=== PATIENT | male | born 1945 | race Caucasian/White ===

== ENCOUNTER 2016-09-29 03:08 | Inpatient (IN) | payer OTHER, MEDICARE ==
[2016-09-29] VITALS (7 sets, daily range): BP systolic 121–144; BP diastolic 70–78; PULSE 78–86; RESP 16–18; TEMP 97.5–98.6; O2SAT 92–97
[~2016-09-29] VITALS: Ht 175.3 cm; Wt 60.8 kg
--- NOTE | 2016-09-29 01:45 | NUR ---
RESUMED CARE Received report from Brain, RN and resumed care to patient. Patient resting on bed with eyes closed. No acute distress. Skin warm and dry to touch. IV intact to RFA, no redness, no swelling, no drainage. On NS at 75ml/hr, infusing well. On droplet isolation R/O TB. Safety measure maintained. Call light within reached. Bed in low position, side rails up. Will continue to monitor. Addendum: 09/30/16 at 0551 by Musa Lopez RN WRONG DATE SHOULD BE 09/30/16
--- NOTE | 2016-09-29 03:20 | NUR ---
Patient O2 sat 90%RA. Placed on 2L O2 via nasal cannula. Oxygen sat increased to 99%
--- NOTE | 2016-09-29 03:20 | NUR ---
Placed in room 07 . Placed on teletypesetter monitor, blood pressure machine and pulse oximeter. To gown for exam. Side rails up. Report given to MAXIME Burch.
--- NOTE | 2016-09-29 03:20 | NUR ---
Patient AAO x4, sitting in bed, c/o sore throat 4/10 with cough and shortness of breath on exertion x 1 week with wheezes. Patient states in the last two weeks he has lost weight, has traveled to [place], and has had night sweats in the last two weeks. Patient denies chest pain, patient is not actively coughing, no acute distress noted at this time. Will continue to monitor.
--- NOTE | 2016-09-29 03:20 | NUR ---
ER at bedside examining patient.
--- NOTE | 2016-09-29 03:30 | NUR ---
Patient moved to Room 08 and placed on droplet precautions.
[2016-09-29] MEDS ORDERED: cefTRIAXone 1 GM in D5W 50 ML IV ONE (03:45)
[2016-09-29] MEDS ORDERED: NS 500 ML IV ONE (03:45)
[2016-09-29 04:07] LABS: ANION GAP 3 (5-15); CALCIUM 8.2 mg/dL (8.4-11.0); CHLORIDE 105 mmol/L (98-107); CREATININE 1.88 mg/dL (0.55-1.30); GLUCOSE 133 mg/dL (70-99); POTASSIUM 3.8 mmol/L (3.5-5.1); SODIUM SERUM 134 mmol/L (136-145); UREA NITROGEN, BLOOD 20 mg/dL (8-21)
[2016-09-29 04:09] LABS: BASOPHILS # (AUTO) 0.1 K/uL (0.0-0.2); BASOPHILS % (AUTO) 0.3 % (0.0-2.0); EOSINOPHILS # (AUTO) 2.1 K/uL (0.0-0.4); EOSINOPHILS % (AUTO) 9.5 % (0.0-4.0); HEMATOCRIT 33.6 % (36-54); HEMOGLOBIN 11.3 g/dL (14.0-18.0); LYMPHOCYTES # (AUTO) 2.2 K/uL (1.0-5.5); MEAN CORPUSCULAR HEMOGLOBIN 31 pg (27-31); MEAN CORPUSCULAR HGB CONC 34 % (32-36); MEAN CORPUSCULAR VOLUME 92 fL (79.0-98.0); MONOCYTES # (AUTO) 0.9 K/uL (0.0-1.0); MONOCYTES % (AUTO) 3.8 % (1.7-9.3); NEUTROPHILS # (AUTO) 17.1 K/uL (1.8-7.7); NEUTROPHILS % (AUTO) 76.4 % (40.0-70.0); RED BLOOD CELL COUNT(AUTO) 3.66 MIL/uL (4.2-6.2); RED CELL DISTRIBUTION WIDTH 14.2 % (9.0-15.0); WHITE BLOOD COUNT (AUTO) 22.4 K/uL (4.8-10.8)
[2016-09-29 04:10] LABS: INR 1.1 (0.80-1.20); PROTHROMBIN TIME 11.8 SECS (9.5-12.5)
[2016-09-29 04:11] LABS: ALANINE AMINOTRANSFERASE 106 U/L (12-78); ALBUMIN 2.1 g/dL (3.4-4.8); ASPARTATE AMINOTRANSFERASE 60 U/L (10-37); CREATINE KINASE, TOTAL 29 U/L (39-308); TOTAL BILIRUBIN 0.6 mg/dL (0.0-1.0); TOTAL PROTEIN, SERUM 8.4 g/dL (6.4-8.3)
[2016-09-29 04:28] LABS: PLATELET COUNT (AUTO) 807 K/uL (130-430)
[2016-09-29] MEDS ORDERED: cefTRIAXone 1 GM IVPB PREMIX 50 ML IV ONE (04:32)
--- NOTE | 2016-09-29 04:43 | NUR ---
Collected sputum and sent to lab.
--- NOTE | 2016-09-29 04:45 | NUR ---
Patient to CT via [place] with [employer].
--- NOTE | 2016-09-29 05:45 | NUR ---
Patient resting in bed. No acute distress noted. Will continue to monitor.
[2016-09-29 06:22] LABS: BILIRUBIN,URINE NEGATIVE (NEGATIVE); BLOOD, URINE 1+ (NEGATIVE); CLARITY/URINE CLEAR (CLEAR); COLOR,URINE YELLOW (YELLOW); GLUCOSE,URINE NEGATIVE (NEGATIVE); KETONES,URINE NEGATIVE (NEGATIVE); LEUKOCYTE ESTERASE ,URINE NEGATIVE (NEGATIVE); NITRITE, URINE NEGATIVE (NEGATIVE); PROTEIN URINE NEGATIVE (NEGATIVE); UROBILINOGEN,URINE 0.2 (0.2-1.0)
[2016-09-29] MEDS ORDERED: ONDANSETRON HCL 4 MG/2 ML VIAL IVP PRN (06:30)
[2016-09-29] MEDS ORDERED: ALBUTEROL SULFATE 0.083% 2.5 MG/3 ML VIAL.NEB INH PRN (06:30)
[2016-09-29] MEDS ORDERED: HYDROcodone/ACETAMIN 10-325 MG TAB PO PRN (06:30)
[2016-09-29] MEDS: NACL 0.9% 1,000 ML IV SCH ×2 (06:36→15:50)
--- NOTE | 2016-09-29 06:38 | NUR ---
Called [facility] for bed placement, informed by charge nurse patient rooms is not ready and she will be calling the ED back for bed placement, until that time patient will remain in the ED.
[2016-09-29 06:42] LABS: BACTERIA,URINE FEW /HPF (None Seen)
[2016-09-29 06:43] LABS: MUCUS,URINE None Seen /LPF (None Seen)
--- NOTE | 2016-09-29 07:10 | NUR ---
Called [facility], bed for patient still unavailable.
--- NOTE | 2016-09-29 07:10 | NUR ---
Report given over the phone to [facility]hand frame surgical elastic knitter. Report also given to dayshift nurse MAXIME Fry.
--- NOTE | 2016-09-29 08:02 | NUR ---
Patient will be admitted to care of . Admitted to unit. Will go to room . Belongings list completed. Summary report printed. Report given BY fast food shift supervisor nurse jonathon
--- NOTE | 2016-09-29 08:12 | NUR ---
ADMISSION: The patient, CHENG ARMENTA, 71 y/o, M admitted by EDUARDO KAM MD, was given written information regarding hospital policies, unit procedures and contact persons.
--- NOTE | 2016-09-29 08:38 | NUR ---
ID consult Order received for a consult with Dr Conn to r/o TB. Dr Peñaloza is phonograph needle tip maker for [facility]. Spoke with Emelia at the exchange. Will follow up as needed.
[2016-09-29] MEDS ORDERED: AZITHROMYCIN 500 MG in NS 250 ML IV SCH ×2 (09:00→17:00)
[2016-09-29] MEDS ORDERED: PANTOPRAZOLE SODIUM 40 MG TAB PO SCH (09:00)
[2016-09-29] MEDS ORDERED: methylPREDNISolone SOD SUCC 40 MG/ML VIAL IVP SCH (09:00)
[2016-09-29] MEDS: LACTOBACILLUS RHAMNOSUS GG 1 CAP CAPSULE PO SCH ×2 (09:44→20:51)
[2016-09-29] MEDS: DIPHENHYDRAMINE HCL 25 MG CAPSULE PO SCH ×4 (09:44→20:51)
[2016-09-29] MEDS: ENOXAPARIN SODIUM 30 MG/0.3 ML SYRINGE SUBCUT SCH (09:45)
[2016-09-29] MEDS ORDERED: methylPREDNISolone SOD SUCC/PF 62.5 MG/ML VIAL IVP ONE (10:15)
[2016-09-29] MEDS ORDERED: LEVOFLOXACIN 500 MG/D5W 100 ML IV ONE (10:15)
--- NOTE | 2016-09-29 10:32 | NUR ---
Pulmonary consult Order received for a consult with Dr Cantu. Dr Marroquin has spoken to Dr Cantu re: pt. Will follow up as needed.
[2016-09-29] MEDS ORDERED: PIPERACILLIN/TAZO 2.25G/DEX-IS 50 ML IV SCH (12:00)
--- NOTE | 2016-09-29 12:25 | NUR ---
PATIENT IS EATING LUNCH, TOLERATED WELL, NO SIGNS OF DISTRESS NOTED.
--- NOTE | 2016-09-29 14:45 | NUR ---
PATIENT IS RESTING, FAMILY AT BEDSIDE.
[2016-09-29] MEDS: methylPREDNISolone SOD SUCC/PF 62.5 MG/ML VIAL IVP SCH ×2 (14:57→21:30)
[2016-09-29] MEDS: FLUCONAZOLE 200 mg/ NS 100 ML IV SCH (15:01)
--- NOTE | 2016-09-29 17:00 | NUR ---
PATIENT IS AT BEDSIDE, NO SIGNS OF DISTRESS NOTED.
[2016-09-29] MEDS: AZITHROMYCIN 500 MG in NS 250 ML IV SCH (18:54)
--- NOTE | 2016-09-29 20:00 | NUR ---
CALLED ORDERED AMBIEN 5MG PO QHS FOR INSOMNIA.
--- NOTE | 2016-09-29 20:10 | NUR ---
OPENING ASSESSMENT PATIENT ALERT/ORIENTED X4 SPEECH IS CLEAR AND APPROPRIATE. DENIES PAIN. DROPLETS ISOLATION. LUNGS ARE CLEAR. NO SOB NOTED. O2 SAT. 96% ON R/A. HAS IV 0.9NS INFUSING @ 75 ML/HR LT. HAND 20 G. IV SITE IS CLEAR. VOIDING CLEAR YELLOW IN URINAL. TOLERATING DIET WITHOUT NAUSEA. CALL LIGHT WITHIN EASY ACCESS. INFORMED PATIENT TO CALL NURSE FOR ALL NEEDS.
[2016-09-29] MEDS: CEFEPIME 1 GM in D5W 50 ML IV SCH (20:50)
[2016-09-29] MEDS: FAMOTIDINE PF 20 MG/2 ML VIAL IVP SCH (20:51)
[2016-09-29] MEDS: ZOLPIDEM TARTRATE 5 MG TABLET PO SCH (21:30)
--- NOTE | 2016-09-29 22:10 | NUR ---
ROUNDS PATIENT RESTING QUIETLY. NO RESPIRATORY DISTRESS NOTED @ THIS TIME.
--- NOTE | 2016-09-30 | NUR ---
ROUNDS EASILY AWAKEN FOR VITALS. RESTING QUIETLY. DENIES PAIN OR RESPIRATORY PROBLEMS.
[2016-09-30 00:13] VITALS: BP 124/75; PULSE 71; RESP 18; TEMP 99.2; O2SAT 98
--- NOTE | 2016-09-30 01:44 | NUR ---
NOTES REPORT GIVEN TO ADRIANA SWARTZ. PATIENT STABLE @ THIS TIME. NO DISTRESS NOTED.
--- NOTE | 2016-09-30 01:45 | NUR ---
RESUMED CARE Received report from Brain, RN and resumed care to patient. Patient resting on bed with eyes closed. No acute distress. Skin warm and dry to touch. IV intact to RFA, no redness, no swelling, no drainage. On NS at 75ml/hr, infusing well. On droplet isolation R/O TB. Safety measure maintained. Call light within reached. Bed in low position, side rails up. Will continue to monitor.
--- NOTE | 2016-09-30 03:05 | NUR ---
ROUND Patient resting on the bed comfortable. No acute distress. Respiration even and unlabored. Safety measure maintained. Call light within reached. Bed in low position, side rails up. Continue to monitor.
[2016-09-30] MEDS: NACL 0.9% 1,000 ML IV SCH (03:48)
[2016-09-30 04:26] VITALS: BP 131/78; PULSE 79; RESP 18; TEMP 97.5; O2SAT 99
--- NOTE | 2016-09-30 04:55 | NUR ---
ROUND Patient resting on the bed comfortable. No acute distress. Respiration even and unlabored. Safety measure maintained. Bed in low position, side rails up. Call light within reached. Continue to monitor.
--- NOTE | 2016-09-30 06:50 | NUR ---
CLOSING CARE Patient resting on bed comfortable. No acute distress. Skin warm and dry to touch. IV intact to RFA, no redness, no swelling, no drainage. On NS at 75ml/hr, infusing well. On droplet isolation R/O TB. All needs met. Hourly rounding during shift. Safety measure maintained. Call light within reached. Bed in low position, side rails up. Will endorse to morning shift nurse.
[2016-09-30] MEDS: LEVOTHYROXINE SODIUM 0.05 MG TABLET PO SCH (06:57)
[2016-09-30] MEDS: methylPREDNISolone SOD SUCC/PF 62.5 MG/ML VIAL IVP SCH (06:58)
[2016-09-30 07:10] LABS: EOSINOPHILS % (AUTO) 0.1 % (0.0-4.0); HEMATOCRIT 27.9 % (36-54); HEMOGLOBIN 9.4 g/dL (14.0-18.0); LYMPHOCYTES # (AUTO) 1.8 K/uL (1.0-5.5); LYMPHOCYTES % (AUTO) 10.1 % (20.5-51.5); MEAN CORPUSCULAR HEMOGLOBIN 32 pg (27-31); MEAN CORPUSCULAR HGB CONC 34 % (32-36); MEAN CORPUSCULAR VOLUME 94 fL (79.0-98.0); MONOCYTES # (AUTO) 0.2 K/uL (0.0-1.0); MONOCYTES % (AUTO) 1.1 % (1.7-9.3); NEUTROPHILS # (AUTO) 15.5 K/uL (1.8-7.7); NEUTROPHILS % (AUTO) 88.7 % (40.0-70.0); PLATELET COUNT (AUTO) 696 K/uL (130-430); RED BLOOD CELL COUNT(AUTO) 2.98 MIL/uL (4.2-6.2); RED CELL DISTRIBUTION WIDTH 14.3 % (9.0-15.0); WHITE BLOOD COUNT (AUTO) 17.5 K/uL (4.8-10.8)
[2016-09-30 07:33] LABS: ALANINE AMINOTRANSFERASE 81 U/L (12-78); ALBUMIN 1.6 g/dL (3.4-4.8); ANION GAP 7 (5-15); ASPARTATE AMINOTRANSFERASE 38 U/L (10-37); CALCIUM 7.6 mg/dL (8.4-11.0); CHLORIDE 106 mmol/L (98-107); CREATININE 1.63 mg/dL (0.55-1.30); GLUCOSE 177 mg/dL (70-99); PHOSPHORUS 3.6 mg/dL (2.7-4.5); POTASSIUM 4.1 mmol/L (3.5-5.1); SODIUM SERUM 137 mmol/L (136-145); TOTAL BILIRUBIN 0.3 mg/dL (0.0-1.0); TOTAL PROTEIN, SERUM 7.2 g/dL (6.4-8.3); UREA NITROGEN, BLOOD 27 mg/dL (8-21)
--- NOTE | 2016-09-30 07:35 | NUR ---
rn notes: patient is aaox 4. afebrile. vss stable. lungs bilaterally with crackles on the bases. no oxygen on room air. abdomen soft and non distended. bed in low position. uses urinal for voiding. call lights within reach. safety measures maintained. has iv access on the rt forearm #20 with Normal Saline 75cc/hr infusing on well. informed patient to call for assistance. still on droplet/tb isolation.
[2016-09-30] MEDS: ENOXAPARIN SODIUM 30 MG/0.3 ML SYRINGE SUBCUT SCH (08:56)
[2016-09-30] MEDS: DIPHENHYDRAMINE HCL 25 MG CAPSULE PO SCH ×3 (08:56→21:14)
[2016-09-30] MEDS: LACTOBACILLUS RHAMNOSUS GG 1 CAP CAPSULE PO SCH ×2 (08:56→21:15)
[2016-09-30] MEDS ORDERED: LEVOFLOXACIN 500 MG/D5W 100 ML IV SCH (09:00)
[2016-09-30] MEDS: FAMOTIDINE PF 20 MG/2 ML VIAL IVP SCH ×2 (09:28→21:14)
[2016-09-30] MEDS: FLUCONAZOLE 200 mg/ NS 100 ML IV SCH (09:28)
[2016-09-30] MEDS: CEFEPIME 1 GM in D5W 50 ML IV SCH ×2 (09:28→21:14)
--- NOTE | 2016-09-30 09:34 | NUR ---
due iv antibiotics given. pepcid iv too. assists on adls.
--- NOTE | 2016-09-30 10:00 | NUR ---
assists on adls.
[2016-09-30 12:00] VITALS: BP 144/80; PULSE 84; RESP 20; TEMP 98.2; O2SAT 96
--- NOTE | 2016-09-30 12:00 | NUR ---
eating lunch tolerating well. no pain nor distress noted.
--- NOTE | 2016-09-30 14:00 | NUR ---
asleep at this time. stable
[2016-09-30] MEDS: methylPREDNISolone SOD SUCC 40 MG/ML VIAL IVP SCH ×2 (15:53→21:14)
[2016-09-30 16:00] VITALS: BP 127/72; PULSE 74; RESP 21; TEMP 98.1; O2SAT 99
--- NOTE | 2016-09-30 16:00 | NUR ---
due medication given as ordered.
--- NOTE | 2016-09-30 18:52 | NUR ---
patient is quite. still eating dinner. no pain nor distress noted.
[2016-09-30] MEDS: AZITHROMYCIN 500 MG in NS 250 ML IV SCH (19:09)
--- NOTE | 2016-09-30 19:25 | NUR ---
sbar report given to incoming nurse. Phillip SWARTZ
--- NOTE | 2016-09-30 19:58 | NUR ---
OPENING ASSESSMENT PATIENT ALERT/ORIENTED X4. SPEECH IS CLEAR AND APPROPRIATE. DENIES PAIN. ISOLATION PRECAUTION FOR DROPLETS TB. O2 SAT. 96%.R/A. HAS BILATERAL CRACKLES IN LUNG CACERES. RFA 20 IV 0.9NS INFUSING @ 75ML/HR. SITE IS CLEAR. VOIDING CLEAR YELLOW IN URINAL. INFORMED PATIENT TO CALL NURSE FOR ALL NEEDS. NOT TO GET OUT OF BED WITHOUT ASSIST. CALL LIGHT WITHIN EASY ACCESS.
[2016-09-30 20:20] VITALS: BP 121/71; PULSE 70; RESP 20; TEMP 98.2; O2SAT 96
[2016-09-30] MEDS: ZOLPIDEM TARTRATE 5 MG TABLET PO SCH (21:14)
--- NOTE | 2016-09-30 22:05 | NUR ---
NOTES PATIENT STATED MILD SOB WHEN AMBULATING TO BATHROOM. EDUCATED PATIENT TO CALL NURSE FOR ALL NEEDS AND WHEN GETTING OUT OF BED.
--- NOTE | 2016-10-01 00:05 | NUR ---
ROUNDS PATIENT IS ASLEEP. NO DISTRESS NOTED @ THIS TIME. NO SOB NOTED.
[2016-10-01 00:30] VITALS: BP 101/58; PULSE 59; RESP 18; TEMP 97.4; O2SAT 94
--- NOTE | 2016-10-01 00:53 | NUR ---
NOTES REPORT TO BRANDEE SWARTZ. PATIENT WITH NO DISTRESS @ THIS TIME. VITALS STABLE. NO SOB NOTED.
--- NOTE | 2016-10-01 01:05 | NUR ---
ROUNDS PATIENT ASLEEP, NO SOB NOR PAIN AND DISCOMFORT NOTED AT THIS TIME. WILL CONTINUE TO MONITOR.
--- NOTE | 2016-10-01 04:00 | NUR ---
PATIENT RESTING: Patient resting quietly. No acute distress noted. Vital signs within normal range.
[2016-10-01 04:24] VITALS: BP 122/63; PULSE 67; RESP 20; TEMP 97.4; O2SAT 97
[2016-10-01] MEDS: LEVOTHYROXINE SODIUM 0.05 MG TABLET PO SCH (06:09)
[2016-10-01] MEDS: methylPREDNISolone SOD SUCC 40 MG/ML VIAL IVP SCH ×2 (06:14→17:28)
--- NOTE | 2016-10-01 06:53 | NUR ---
CLOSING NOTES PATIENT AWAKE, VITALS STABLE, DENIES ANY PAIN AND DISCOMFORT NOR COUGH AT THIS TIME. ALL NEEDS ATTENDED TO. DUE MEDICATIONS GIVEN ORDERED. SAFETY AND FALL PRECAUTION MEASURES MAINTAINED. CALL LIGHT PLACED WITH PATIENT.
[2016-10-01 07:03] LABS: BASOPHILS # (AUTO) 0.1 K/uL (0.0-0.2); BASOPHILS % (AUTO) 0.3 % (0.0-2.0); HEMATOCRIT 27.4 % (36-54); HEMOGLOBIN 9.3 g/dL (14.0-18.0); LYMPHOCYTES # (AUTO) 1.8 K/uL (1.0-5.5); LYMPHOCYTES % (AUTO) 7.8 % (20.5-51.5); MEAN CORPUSCULAR HEMOGLOBIN 32 pg (27-31); MEAN CORPUSCULAR HGB CONC 34 % (32-36); MEAN CORPUSCULAR VOLUME 94 fL (79.0-98.0); MONOCYTES # (AUTO) 0.8 K/uL (0.0-1.0); MONOCYTES % (AUTO) 3.5 % (1.7-9.3); NEUTROPHILS # (AUTO) 20.6 K/uL (1.8-7.7); NEUTROPHILS % (AUTO) 88.4 % (40.0-70.0); PLATELET COUNT (AUTO) 686 K/uL (130-430); RED BLOOD CELL COUNT(AUTO) 2.93 MIL/uL (4.2-6.2); RED CELL DISTRIBUTION WIDTH 14.4 % (9.0-15.0); WHITE BLOOD COUNT (AUTO) 23.3 K/uL (4.8-10.8)
[2016-10-01 07:12] LABS: ANION GAP 8 (5-15); CALCIUM 7.6 mg/dL (8.4-11.0); CHLORIDE 108 mmol/L (98-107); GLUCOSE 173 mg/dL (70-99); POTASSIUM 4.1 mmol/L (3.5-5.1); SODIUM SERUM 139 mmol/L (136-145); UREA NITROGEN, BLOOD 35 mg/dL (8-21)
--- NOTE | 2016-10-01 07:35 | NUR ---
rn notes: patient is aaox 4. afebrile. vss stable. has iv access on the left forearm #22. with normal saline at 75cc/hr infusing on well. lungs bilaterally with slight crackles noted. patient verbalized wants to have oxygen on. dyspneic at times. Dr Cantu is aware. oxygen saturation on 2lnc is 94%. abdomen soft and non distended. call lights within reach. safety measures maintained. bed in low position. still on droplet isolation
[2016-10-01 08:00] VITALS: BP 138/82; PULSE 82; RESP 18; TEMP 97.6; O2SAT 98
--- NOTE | 2016-10-01 09:00 | NUR ---
assists on adls.
[2016-10-01] MEDS: LACTOBACILLUS RHAMNOSUS GG 1 CAP CAPSULE PO SCH ×2 (09:26→22:25)
[2016-10-01] MEDS: DIPHENHYDRAMINE HCL 25 MG CAPSULE PO SCH ×3 (09:26→22:25)
[2016-10-01] MEDS: FLUCONAZOLE 200 mg/ NS 100 ML IV SCH (09:26)
[2016-10-01] MEDS: FAMOTIDINE PF 20 MG/2 ML VIAL IVP SCH ×2 (09:26→22:28)
[2016-10-01] MEDS: ENOXAPARIN SODIUM 30 MG/0.3 ML SYRINGE SUBCUT SCH (09:26)
[2016-10-01] MEDS: CEFEPIME 1 GM in D5W 50 ML IV SCH ×2 (09:26→22:35)
--- NOTE | 2016-10-01 10:00 | NUR ---
due medication given
--- NOTE | 2016-10-01 12:00 | NUR ---
eating lunch tolerating well. no sputum available yet.
[2016-10-01 13:01] VITALS: BP 136/79; PULSE 75; RESP 17; TEMP 98.5; O2SAT 95
--- NOTE | 2016-10-01 14:00 | NUR ---
patient is stable. no pain noted.
--- NOTE | 2016-10-01 15:50 | NUR ---
due medication given at this time. made comfortable. assists on adls.
--- NOTE | 2016-10-01 16:00 | NUR ---
no sputum collected. yet. only spit available.
[2016-10-01 16:36] VITALS: BP 123/70; PULSE 63; RESP 18; TEMP 97.2; O2SAT 97
[2016-10-01] MEDS: AZITHROMYCIN 500 MG in NS 250 ML IV SCH (17:21)
--- NOTE | 2016-10-01 17:27 | NUR ---
due medication given at this time
--- NOTE | 2016-10-01 18:00 | NUR ---
azithromycin iv antibiotic given at this time. made comfortable. and solumedrol 20 mg iv given.
--- NOTE | 2016-10-01 19:20 | NUR ---
OPENING NOTES PATIENT IS SITTING UP IN BED, IN GOOD SPIRITS. SON AT BEDSIDE WATCHING HOCKEY GAME ON LAPTOP. IV PATENT. NO ACUTE SIGNS OR SYMPTOMS OF DISTRESS NOTED. BED IN LOWEST POSITION AND CALL LIGHT WITHIN REACH. WILL CONTINUE TO MONITOR.
--- NOTE | 2016-10-01 19:40 | NUR ---
sbar report given to incoming nurse Judy SWARTZ and Yuki SWARTZ
[2016-10-01 20:10] VITALS: BP 148/78; PULSE 60; RESP 20; TEMP 98.2; O2SAT 98
--- NOTE | 2016-10-01 21:30 | NUR ---
ROUNDS PATIENT IS RESTING COMFORTABLY IN SEMI-FOWLERS. IV FLUIDS RUNNING. NO ACUTE SIGNS OR SYMPTOMS OF DISTRESS NOTED. BED IN LOWEST POSITION AND CALL LIGHT WITHIN REACH. WILL CONTINUE TO MONITOR.
[2016-10-01] MEDS: ZOLPIDEM TARTRATE 5 MG TABLET PO SCH (22:30)
[2016-10-02 00:50] VITALS: BP 139/75; PULSE 61; RESP 18; TEMP 97.4; O2SAT 97
--- NOTE | 2016-10-02 01:30 | NUR ---
ROUNDS PATIENT IS SLEEPING COMFORTABLY IN SEMI-FOWLERS. VISIBLE RISE AND FALL OF CHEST NOTED. NO ACUTE SIGNS OR SYMPTOMS OF DISTRESS NOTED. BED IN LOWEST POSITION AND CALL LIGHT WITHIN REACH. WILL CONTINUE TO MONITOR.
--- NOTE | 2016-10-02 03:30 | NUR ---
ROUNDS PATIENT SLEEPING, VISIBLE RISE AND FALL OF CHEST NOTED. NO ACUTE SIGNS OR SYMPTOMS OF DISTRESS NOTED. BED IN LOWEST POSITION AND CALL LIGHT WITHIN REACH. WILL CONTINUE TO MONITOR.
[2016-10-02 04:23] VITALS: PULSE 65; RESP 16; TEMP 98.4; O2SAT 97
[2016-10-02] MEDS: methylPREDNISolone SOD SUCC 40 MG/ML VIAL IVP SCH ×2 (05:41→17:38)
[2016-10-02] MEDS: LEVOTHYROXINE SODIUM 0.05 MG TABLET PO SCH (06:03)
[2016-10-02 07:10] VITALS: BP 152/92; PULSE 84; RESP 18; TEMP 97.4; O2SAT 97
--- NOTE | 2016-10-02 07:30 | NUR ---
CLOSING NOTES WILL ENDORSE CARE TO DAY SHIFT NURSE. PATIENT IS SLEEPING, VISIBLE RISE AND FALL OF CHEST NOTED. NO VISIBLE SIGNS OR SYMPTOMS OF DISTRESS. FALL PRECAUTIONS IN PLACE, CALL LIGHT WITHIN REACH.
--- NOTE | 2016-10-02 07:53 | NUR ---
AM Rounds: Received pt sitting semi-fowlers in bed. No acute signs of distress noted at this time. IV intact to RUE with no redness or swelling noted to site. Isolation precautions in place. Call light in reach. Bed alarm on. Continue to monitor.
[2016-10-02] MEDS: LACTOBACILLUS RHAMNOSUS GG 1 CAP CAPSULE PO SCH ×2 (08:48→22:03)
[2016-10-02] MEDS: ENOXAPARIN SODIUM 30 MG/0.3 ML SYRINGE SUBCUT SCH (08:48)
[2016-10-02] MEDS: FAMOTIDINE PF 20 MG/2 ML VIAL IVP SCH ×2 (08:48→22:06)
[2016-10-02] MEDS: CEFEPIME 1 GM in D5W 50 ML IV SCH ×2 (08:48→22:13)
[2016-10-02] MEDS: DIPHENHYDRAMINE HCL 25 MG CAPSULE PO SCH (08:48)
--- NOTE | 2016-10-02 09:08 | NUR ---
RN Rounds: AM meds given per MD order. Pt tolerates well. IV antibiotic infusing well to LUE with no redness or swelling noted to site. Call light in reach. Continue to monitor.
[2016-10-02] MEDS: FLUCONAZOLE 200 mg/ NS 100 ML IV SCH (09:55)
--- NOTE | 2016-10-02 11:45 | NUR ---
Rounds: Pt up to bathroom unassisted. Pt tolerates activity well and denies SOB. Call light in reach. Continue to monitor.
[2016-10-02 12:25] VITALS: BP 132/70; PULSE 52; RESP 17; TEMP 97.7; O2SAT 96
--- NOTE | 2016-10-02 13:45 | NUR ---
Rounds: Pt sitting semi-fowlers in bed with no acute signs of distress noted. Pt is watching TV at this time. Pt denies pain and SOB. Call light in reach. Pt is able to make needs known. No other needs noted at this time. Continue to monitor.
--- NOTE | 2016-10-02 15:21 | NUR ---
Rounds: Pt sitting semi-fowlers in bed and watching TV. No acute signs of distress noted at this time. IV intact to LUE with no redness or swelling noted to site. Pt denies pain and SOB. Call light in reach. Continue to monitor.
[2016-10-02 16:00] VITALS: BP 146/85; PULSE 63; RESP 18; TEMP 98; O2SAT 98
[2016-10-02] MEDS: AZITHROMYCIN 500 MG in NS 250 ML IV SCH (17:39)
[2016-10-02] MEDS: ACETAMINOPHEN 325 MG TABLET PO PRN (17:47)
--- NOTE | 2016-10-02 17:48 | NUR ---
Rounds: Pt sitting semi-fowlers in bed. No acute signs of distress noted. Pt medicated for c/o mouth pain. Call light in reach. Continue to monitor.
--- NOTE | 2016-10-02 18:52 | NUR ---
Closing Note: Pt sitting semi-fowlers in bed. No acute signs of distress noted at this time. IV intact to LUE with no redness or swelling noted to site. Pt denies pain. Call light in reach. Pt is able to make needs known. No other needs noted. Endorse plan of care to ANGELICA RN.
--- NOTE | 2016-10-02 19:25 | NUR ---
initial nursing notes: Patient is awake. Patient is in respiratory isolation to rule out TB. Patient has an IV access on the left forearm.
[2016-10-02 19:31] VITALS: BP 140/81; PULSE 62; RESP 16; TEMP 97.7; O2SAT 98
--- NOTE | 2016-10-02 21:25 | NUR ---
nursing rounds: Patient is awake, watching television. Patient denies of having pain.
[2016-10-02] MEDS: ZOLPIDEM TARTRATE 5 MG TABLET PO SCH (21:57)
--- NOTE | 2016-10-02 23:25 | NUR ---
nursing rounds: Patient is asleep. Patient has no shortness of breath.
[2016-10-03] VITALS (7 sets, daily range): BP systolic 130–158; BP diastolic 74–81; PULSE 52–86; RESP 16–18; TEMP 97.4–99.6; O2SAT 97–100
--- NOTE | 2016-10-03 01:25 | NUR ---
nursing rounds: Patient calmly resting in bed. Patient continues to receive 2L/min oxygen via nasal cannula. Patient has no difficulty breathing.
--- NOTE | 2016-10-03 03:25 | NUR ---
nursing rounds: Patient is sleeping in bed. Patient has no respiratory distress.
--- NOTE | 2016-10-03 05:25 | NUR ---
nursing rounds: Patient calmly resting in bed. Call light within patient's reach.
[2016-10-03] MEDS: LEVOTHYROXINE SODIUM 0.05 MG TABLET PO SCH (06:34)
[2016-10-03] MEDS: methylPREDNISolone SOD SUCC 40 MG/ML VIAL IVP SCH (06:39)
[2016-10-03 06:52] LABS: BASOPHILS % (AUTO) 0.3 % (0.0-2.0); HEMATOCRIT 29.1 % (36-54); HEMOGLOBIN 10.1 g/dL (14.0-18.0); LYMPHOCYTES # (AUTO) 2.3 K/uL (1.0-5.5); LYMPHOCYTES % (AUTO) 14.4 % (20.5-51.5); MEAN CORPUSCULAR HEMOGLOBIN 32 pg (27-31); MEAN CORPUSCULAR HGB CONC 35 % (32-36); MEAN CORPUSCULAR VOLUME 92 fL (79.0-98.0); MONOCYTES # (AUTO) 1.3 K/uL (0.0-1.0); NEUTROPHILS # (AUTO) 12.3 K/uL (1.8-7.7); NEUTROPHILS % (AUTO) 77.3 % (40.0-70.0); PLATELET COUNT (AUTO) 644 K/uL (130-430); RED BLOOD CELL COUNT(AUTO) 3.15 MIL/uL (4.2-6.2); RED CELL DISTRIBUTION WIDTH 14.3 % (9.0-15.0); WHITE BLOOD COUNT (AUTO) 15.9 K/uL (4.8-10.8)
[2016-10-03 07:04] LABS: ANION GAP 4 (5-15); CHLORIDE 103 mmol/L (98-107); CREATININE 1.61 mg/dL (0.55-1.30); GLUCOSE 155 mg/dL (70-99); POTASSIUM 4.3 mmol/L (3.5-5.1); SODIUM SERUM 135 mmol/L (136-145); UREA NITROGEN, BLOOD 38 mg/dL (8-21)
--- NOTE | 2016-10-03 07:24 | NUR ---
closing nursing notes: Patient is awake, alert and oriented X 4. Patient is in no acute respiratory distress. No episodes of fall and no injuries throughout the casino shift manager. Provided nursing report to incoming morning shift nurse, MAXIME Chavez, at patient's bedside.
--- NOTE | 2016-10-03 07:58 | NUR ---
AM Rounds: Received pt sittings semi-fowlers in bed. No acute signs of distress noted at this time. Iv intact to RUE with no redness or swelling noted to site. Call light in reach. Continue to monitor.
[2016-10-03] MEDS: FAMOTIDINE PF 20 MG/2 ML VIAL IVP SCH (08:16)
[2016-10-03] MEDS: LACTOBACILLUS RHAMNOSUS GG 1 CAP CAPSULE PO SCH ×2 (08:16→20:23)
[2016-10-03] MEDS: ACETAMINOPHEN 325 MG TABLET PO PRN (08:16)
[2016-10-03] MEDS: ENOXAPARIN SODIUM 30 MG/0.3 ML SYRINGE SUBCUT SCH (08:16)
[2016-10-03] MEDS: CEFEPIME 1 GM in D5W 50 ML IV SCH ×2 (08:17→20:24)
--- NOTE | 2016-10-03 09:30 | NUR ---
RN Rounds: AM meds given per MD order. Pt tolerates well. Denies pain at this time. Call light in reach. Continue to monitor.
[2016-10-03] MEDS: FLUCONAZOLE 200 mg/ NS 100 ML IV SCH (09:35)
[2016-10-03] MEDS: NYSTATIN 500,000 UNITS/5 ML UDC PO SCH ×3 (11:17→23:05)
--- NOTE | 2016-10-03 11:35 | NUR ---
Rounds: Pt sitting semi-fowlers in bed. No acute signs of distress noted at this time. Pt medicated for c/o mouth pain. Airborne precautions in place. Continue to monitor.
--- NOTE | 2016-10-03 13:50 | NUR ---
Rounds: Pt sitting up in bed and watching TV. No acute signs of distress noted. Call light in reach. Continue to monitor.
--- NOTE | 2016-10-03 15:59 | NUR ---
Rounds: Pt laying flat in bed and sleeping. No acute signs of distress noted at this time. Breathing even and unlabored on room air. IV intact to LUE with no redness or swelling noted to site. Call light in reach. Continue to monitor.
--- NOTE | 2016-10-03 18:26 | NUR ---
Closing Note: Pt sitting semi-fowlers in bed. No acute signs of distress noted at this time. IV intact to RUE with no redness or swelling noted to site. Call light in reach. Pt denies pain. Endorse plan of care to NOC RN.
--- NOTE | 2016-10-03 19:15 | NUR ---
initial nursing notes: Patient is awake, watching television. Patient's IV access on the left forearm is intact. Patient denies of having pain.
[2016-10-03] MEDS: ZOLPIDEM TARTRATE 5 MG TABLET PO SCH (20:22)
[2016-10-03] MEDS: FAMOTIDINE 20 MG TABLET PO SCH (20:22)
--- NOTE | 2016-10-03 21:15 | NUR ---
nursing rounds: Patient is ambulatory to the bathroom with a steady gait. No falls and no injuries noted.
--- NOTE | 2016-10-03 23:15 | NUR ---
nursing rounds: Patient was asleep. Had to wake-up patient to provide his (Nystatin) medication as ordered, per patient's request.
--- NOTE | 2016-10-04 01:15 | NUR ---
nursing rounds: Patient is asleep. Patient has no shortness of breath.
--- NOTE | 2016-10-04 03:15 | NUR ---
nursing rounds: Patient is sleeping in bed. Patient has no respiratory distress.
[2016-10-04 04:27] VITALS: BP 126/77; PULSE 86; RESP 16; TEMP 98.4; O2SAT 97
--- NOTE | 2016-10-04 05:15 | NUR ---
nursing rounds: Patient calmly resting in bed. Call light within patient's reach.
[2016-10-04] MEDS: NYSTATIN 500,000 UNITS/5 ML UDC PO SCH ×3 (06:06→18:13)
[2016-10-04] MEDS: LEVOTHYROXINE SODIUM 0.05 MG TABLET PO SCH (06:09)
[2016-10-04 07:19] LABS: BASOPHILS % (AUTO) 0.1 % (0.0-2.0); EOSINOPHILS # (AUTO) 0.2 K/uL (0.0-0.4); EOSINOPHILS % (AUTO) 1.1 % (0.0-4.0); HEMOGLOBIN 11.8 g/dL (14.0-18.0); LYMPHOCYTES # (AUTO) 2.9 K/uL (1.0-5.5); LYMPHOCYTES % (AUTO) 17.6 % (20.5-51.5); MEAN CORPUSCULAR HEMOGLOBIN 30 pg (27-31); MEAN CORPUSCULAR HGB CONC 33 % (32-36); MEAN CORPUSCULAR VOLUME 92 fL (79.0-98.0); MONOCYTES # (AUTO) 1.6 K/uL (0.0-1.0); MONOCYTES % (AUTO) 9.6 % (1.7-9.3); NEUTROPHILS # (AUTO) 11.9 K/uL (1.8-7.7); NEUTROPHILS % (AUTO) 71.6 % (40.0-70.0); PLATELET COUNT (AUTO) 695 K/uL (130-430); RED BLOOD CELL COUNT(AUTO) 3.93 MIL/uL (4.2-6.2); RED CELL DISTRIBUTION WIDTH 14.3 % (9.0-15.0); WHITE BLOOD COUNT (AUTO) 16.6 K/uL (4.8-10.8)
[2016-10-04 07:25] LABS: ANION GAP 5 (5-15); CALCIUM 8.1 mg/dL (8.4-11.0); CHLORIDE 95 mmol/L (98-107); CREATININE 1.69 mg/dL (0.55-1.30); GLUCOSE 122 mg/dL (70-99); POTASSIUM 3.9 mmol/L (3.5-5.1); SODIUM SERUM 129 mmol/L (136-145); UREA NITROGEN, BLOOD 35 mg/dL (8-21)
--- NOTE | 2016-10-04 07:38 | NUR ---
closing nursing notes: Patient is awake, alert and oriented X 4. Patient is in no acute respiratory distress. No episodes of fall and no injuries throughout the assembler 1st shift. Provided nursing report to incoming morning shift nurse, MAXIME Girard, at patient's bedside.
--- NOTE | 2016-10-04 08:35 | NUR ---
AM ROUNDS Pt A/Ox4, isolation precautions in place...Pt denies pain at this time...HL to LFA flushes well...Pt ambulates ad jerry with steady gait..pt only c/o sore mouth due to thrush. Pt has nystatin ordered...Call light/phone w/in reach...Will cont to monitor
[2016-10-04 08:49] VITALS: BP 130/79; PULSE 89; RESP 18; TEMP 97.3; O2SAT 89
--- NOTE | 2016-10-04 08:52 | NUR ---
Diet changed: Patient ate only cream of wheat, states eggs, and bread scratch his sore mouth increasing more pain. Change diet to Full liquid diet for lunch.
[2016-10-04] MEDS ORDERED: methylPREDNISolone SOD SUCC 40 MG/ML VIAL IVP SCH (09:00)
[2016-10-04] MEDS ORDERED: FLUCONAZOLE 200 MG TABLET (DIFLUCAN) PO ONE (09:15)
[2016-10-04] MEDS ORDERED: methylPREDNISolone SOD SUCC 40 MG/ML VIAL IVP ONE (10:15)
[2016-10-04] MEDS: CEFEPIME 1 GM in D5W 50 ML IV SCH ×2 (10:19→20:48)
[2016-10-04] MEDS: AZITHROMYCIN 250 MG TABLET PO SCH (10:43)
[2016-10-04] MEDS: ENOXAPARIN SODIUM 30 MG/0.3 ML SYRINGE SUBCUT SCH (10:43)
[2016-10-04] MEDS: FAMOTIDINE 20 MG TABLET PO SCH ×2 (10:43→20:50)
--- NOTE | 2016-10-04 11:00 | NUR ---
ROUNDS Pt stable...no changes... at bedside...will cont to monitor
--- NOTE | 2016-10-04 11:59 | NUR ---
DC ISOLATION: DR. RAMIREZ MAKES ROUND, STATES TO DC ISOLATION DUE TO TB GOLD RESULT.
[2016-10-04 12:00] VITALS: BP 125/79; PULSE 84; RESP 18; TEMP 99.2; O2SAT 97
--- NOTE | 2016-10-04 14:00 | NUR ---
ROUNDS PT STABLE..NO CHANGES...WILL CONT TO MONITOR
[2016-10-04 15:12] VITALS: Ht 175.3 cm; Wt 60.8 kg
[2016-10-04 15:22] LABS: IMMUNOGLOBULIN E,TOTAL 600 IU/mL (0-100)
[2016-10-04 16:00] VITALS: BP 107/71; PULSE 86; RESP 18; TEMP 98.8; O2SAT 97
--- NOTE | 2016-10-04 16:29 | NUR ---
ROUNDS PT STABLE...NO CHANGES...ALL NEEDS MET....WILL CONT TO MONITOR
--- NOTE | 2016-10-04 17:05 | NUR ---
PATIENT RESTING: Patient resting quietly. No acute distress noted. Vital signs within normal range.
--- NOTE | 2016-10-04 18:34 | NUR ---
ROUNDS PT SITTING UP IN BED..TOLERATING FULL LIQUIDS WELL...FEELING A LITTLE BETTER...WILL CONT TO MONITOR
[2016-10-04 20:19] VITALS: BP 120/73; PULSE 97; RESP 16; TEMP 98.8; O2SAT 96
[2016-10-04] MEDS: ZOLPIDEM TARTRATE 5 MG TABLET PO SCH (20:50)
[2016-10-04] MEDS: valACYclovir HCL 500 MG TABLET PO SCH (20:50)
--- NOTE | 2016-10-04 20:57 | NUR ---
ASSISTED PATIENT TO THE RESTROOM AND BACK INTO BED. GAIT IS STEADY. PATIENT EDUCATED ON SLEEP AID AMBIEN AND IT'S FALL RISK. PATIENT INSTRUCTED TO CALL FOR ASSISTANCE. PATIENT REFUSED BED ALARM.
[2016-10-04] MEDS ORDERED: PREDNISONE 20 MG TABLET PO SCH (21:00)
--- NOTE | 2016-10-05 00:10 | NUR ---
ROUNDS PATIENT IS IN BED SLEEPING. NO SIGNS OF DISTRESS. BREATHING IS NON LABORED. CALL LIGHT IS WITHIN REACH. WILL CONTINUE TO MONITOR.
[2016-10-05] MEDS: NYSTATIN 500,000 UNITS/5 ML UDC PO SCH ×4 (00:44→17:36)
[2016-10-05 01:10] VITALS: BP 117/75; PULSE 80; RESP 16; TEMP 98.2; O2SAT 97
--- NOTE | 2016-10-05 02:21 | NUR ---
ROUNDS PATIENT IS IN BED SLEEPING. NO SIGNS OF DISTRESS. BREATHING IS NON LABORED. SAFETY MEASURES ARE IN PLACE. WILL CONTINUE TO MONITOR.
--- NOTE | 2016-10-05 04:45 | NUR ---
ROUNDS PATIENT WAS GIVEN ICE WATER.
[2016-10-05 04:58] VITALS: BP 118/71; PULSE 76; RESP 16; TEMP 97.6; O2SAT 97
[2016-10-05] MEDS: LEVOTHYROXINE SODIUM 0.05 MG TABLET PO SCH (06:40)
[2016-10-05 07:15] LABS: EOSINOPHILS % (AUTO) 0.1 % (0.0-4.0); HEMATOCRIT 34.7 % (36-54); HEMOGLOBIN 11.6 g/dL (14.0-18.0); LYMPHOCYTES # (AUTO) 2.2 K/uL (1.0-5.5); LYMPHOCYTES % (AUTO) 12.4 % (20.5-51.5); MEAN CORPUSCULAR HEMOGLOBIN 31 pg (27-31); MEAN CORPUSCULAR HGB CONC 33 % (32-36); MEAN CORPUSCULAR VOLUME 93 fL (79.0-98.0); MONOCYTES # (AUTO) 0.9 K/uL (0.0-1.0); NEUTROPHILS # (AUTO) 14.6 K/uL (1.8-7.7); PLATELET COUNT (AUTO) 623 K/uL (130-430); RED BLOOD CELL COUNT(AUTO) 3.73 MIL/uL (4.2-6.2); RED CELL DISTRIBUTION WIDTH 14.7 % (9.0-15.0); WHITE BLOOD COUNT (AUTO) 17.7 K/uL (4.8-10.8)
--- NOTE | 2016-10-05 07:20 | NUR ---
CLOSING NOTES PATIENT IS IN BED SLEEPING. NO SIGNS OF DISTRESS. BREATHING IS NON LABORED. IV IS PATENT AND SHOWS NO SIGNS OF COMPLICATIONS. REPORT WAS GIVEN TO THE MORNING NURSE.
[2016-10-05 07:31] LABS: ALANINE AMINOTRANSFERASE 136 U/L (12-78); ANION GAP 9 (5-15); ASPARTATE AMINOTRANSFERASE 48 U/L (10-37); CALCIUM 8.3 mg/dL (8.4-11.0); CHLORIDE 97 mmol/L (98-107); CREATININE 1.64 mg/dL (0.55-1.30); GLUCOSE 224 mg/dL (70-99); POTASSIUM 4.2 mmol/L (3.5-5.1); SODIUM SERUM 133 mmol/L (136-145); TOTAL BILIRUBIN 0.4 mg/dL (0.0-1.0); TOTAL PROTEIN, SERUM 7.4 g/dL (6.4-8.3); UREA NITROGEN, BLOOD 37 mg/dL (8-21)
--- NOTE | 2016-10-05 07:40 | NUR ---
AM ROUNDS Pt A/Ox4, Pt cleared from isolation precautions...Pt c/o mouth pain/soreness....HL to LFA flushes well...Pt ambulates ad jerry with steady gait....Call light/phone w/in reach...Will cont to monitor
[2016-10-05 08:15] LABS: ABG TOTAL HEMOGLOBIN 12.4 G/dL (12.0-18.0); BLOOD GAS BASE EXCESS 3.6 mmol/L (-3.0-3.0); BLOOD GAS COHb% 0.4 % (0.5-1.5); BLOOD GAS HHB 3.2 % (0.0-6.0); BLOOD GAS PH 7.498 (7.350-7.450); BLOOD O2Hb% 95.9 % (94.0-97.0)
[2016-10-05] MEDS: AZITHROMYCIN 250 MG TABLET PO SCH (08:55)
[2016-10-05] MEDS: FAMOTIDINE 20 MG TABLET PO SCH ×2 (08:55→21:16)
[2016-10-05] MEDS: valACYclovir HCL 500 MG TABLET PO SCH ×2 (08:55→21:17)
[2016-10-05] MEDS: PREDNISONE 20 MG TABLET PO SCH (08:56)
[2016-10-05] MEDS: ENOXAPARIN SODIUM 30 MG/0.3 ML SYRINGE SUBCUT SCH (08:56)
[2016-10-05] MEDS ORDERED: methylPREDNISolone SOD SUCC 40 MG/ML VIAL IVP SCH (09:00)
[2016-10-05 10:00] LABS: NEUTROPHILS % (AUTO) 82.5 % (40.0-70.0)
[2016-10-05] MEDS: CEFEPIME 1 GM in D5W 50 ML IV SCH ×2 (10:12→21:16)
[2016-10-05 11:24] VITALS: BP 128/80; PULSE 86; RESP 16; TEMP 96.7; O2SAT 96
[2016-10-05 11:28] VITALS: BP 128/80; PULSE 86
--- NOTE | 2016-10-05 12:00 | NUR ---
PT AMBULATED TO RESTROOM W/STEADY GAIT WILL CONT TO MONITOR
--- NOTE | 2016-10-05 12:23 | NUR ---
ROUNDS PT STABLE...SITTING UP IN BED EATING LUNCH...WILL CONT TO MONITOR
--- NOTE | 2016-10-05 14:49 | NUR ---
ROUNDS PT STABLE...COMFORTABLE..RESTING QUIETLY...WILL CONT TO MONITOR
[2016-10-05 15:32] VITALS: BP 116/73; PULSE 63; RESP 16; TEMP 96.9; O2SAT 92
--- NOTE | 2016-10-05 17:33 | NUR ---
PT AMBULATED TO RESTROOM W/STEADY GAIT
--- NOTE | 2016-10-05 18:58 | NUR ---
ROUNDS PT STABLE...NO CHANGES...COMFORTABLE...WILL CONT TO MONITOR
[2016-10-05 19:55] VITALS: BP 120/73; PULSE 81; RESP 17; TEMP 97.7; O2SAT 94
--- NOTE | 2016-10-05 19:55 | NUR ---
OPENING NOTES PATIENT IS IN BED SITTING UP AND WATCHING TV. PATIENT IS A/OX4. NO SIGNS OF DISTRESS. BREATHING IS NON LABORED. VITAL SIGNS ARE STABLE. FAMILY IS AT BEDSIDE. PATIENT INSTRUCTED TO CALL FOR ASSISTANCE. SAFETY MEASURES ARE IN PLACE. WILL CONTINUE TO MONITOR. CALL LIGHT IS WITHIN REACH.
[2016-10-05] MEDS: ZOLPIDEM TARTRATE 5 MG TABLET PO SCH (21:17)
--- NOTE | 2016-10-05 21:50 | NUR ---
ROUNDS PATIENT WAS GIVEN ICE WATER AND A WARM BLANKET.
[2016-10-06] MEDS: NYSTATIN 500,000 UNITS/5 ML UDC PO SCH ×4 (00:07→17:48)
--- NOTE | 2016-10-06 00:26 | NUR ---
ROUNDS PATIENT WAS GIVEN CHAPSTICK
[2016-10-06 00:43] VITALS: BP 121/78; PULSE 86; RESP 17; TEMP 98.5; O2SAT 97
--- NOTE | 2016-10-06 01:38 | NUR ---
ROUNDS PATIENT IS IN BED SLEEPING. BREATHING IS NON LABORED. NO SIGNS OF DISTRESS. O2 IS ON AND FLOWING. CALL LIGHT IS WITHIN REACH. SAFETY MEASURES ARE IN PLACE. WILL CONTINUE TO MONITOR.
--- NOTE | 2016-10-06 03:48 | NUR ---
ROUNDS PATIENT IS IN BED SLEEPING COMFORTABLY. NO SIGNS OF DISTRESS. BREATHING IS NON LABORED. SAFETY MEASURES ARE IN PLACE. CALL LIGHT IS WITHIN REACH. WILL CONTINUE TO MONITOR.
[2016-10-06 04:00] VITALS: BP 115/72; PULSE 73; RESP 18; TEMP 97.1; O2SAT 97
--- NOTE | 2016-10-06 05:20 | NUR ---
ROUNDS PATIENT IS IN BED SLEEPING. NO SIGNS OF DISTRESS. BREATHING IS NON LABORED. WILL CONTINUE TO MONITOR.
[2016-10-06] MEDS: LEVOTHYROXINE SODIUM 0.05 MG TABLET PO SCH (06:20)
--- NOTE | 2016-10-06 06:36 | NUR ---
CLOSING NOTES PATIENT IS IN BED RESTING COMFORTABLY. NO SIGNS OF DISTRESS. BREATHING IS NON LABORED. O2 IS ON VIA NASAL CANNULA AND IS FLOWING. IV SHOWS NO SIGNS OF COMPLICATION. WILL ENDORSE ALL CARE TO THE MORNING NURSE.
--- NOTE | 2016-10-06 07:20 | NUR ---
initial notes: pt on bed, awake, alert and oriented. ambulatory with stable gait. i.v. access. patent. call light within reach report received at bedside.
[2016-10-06 07:43] LABS: ANION GAP 6 (5-15); CALCIUM 8.4 mg/dL (8.4-11.0); CHLORIDE 98 mmol/L (98-107); CREATININE 1.43 mg/dL (0.55-1.30); GLUCOSE 126 mg/dL (70-99); POTASSIUM 4.6 mmol/L (3.5-5.1); SODIUM SERUM 131 mmol/L (136-145); UREA NITROGEN, BLOOD 35 mg/dL (8-21)
[2016-10-06] MEDS: AZITHROMYCIN 250 MG TABLET PO SCH (08:39)
[2016-10-06] MEDS: PREDNISONE 20 MG TABLET PO SCH (08:40)
[2016-10-06] MEDS: CEFEPIME 1 GM in D5W 50 ML IV SCH (08:43)
[2016-10-06] MEDS: ENOXAPARIN SODIUM 30 MG/0.3 ML SYRINGE SUBCUT SCH (08:43)
[2016-10-06] MEDS: valACYclovir HCL 500 MG TABLET PO SCH (08:53)
--- NOTE | 2016-10-06 08:58 | NUR ---
henry rounds: d/c planning needs to ask Dr. Miles for i.v. antibiotic and maybe discharge today
[2016-10-06] MEDS ORDERED: LACTOBACILLUS RHAMNOSUS GG 1 CAP CAPSULE PO SCH (09:00)
--- NOTE | 2016-10-06 11:12 | NUR ---
ROUNDS: pt on bed resting. no distress noted.
--- NOTE | 2016-10-06 11:13 | NUR ---
Ambulate: pt ambulate in the hallway with student nurse.
[2016-10-06 11:31] VITALS: BP 122/76; PULSE 97; RESP 16; TEMP 96.2; O2SAT 97
--- NOTE | 2016-10-06 14:00 | NUR ---
Jack rounds: Dr. Miles seen the pt with oral antibiotic prescription.
[2016-10-06 15:09] LABS: CYTOPLASMIC (C-ANCA) <1:20 titer (Neg:<1:20); CYTOPLASMIC (P-ANCA) <1:20 titer (Neg:<1:20)
[2016-10-06 15:44] VITALS: BP 124/76; PULSE 91; RESP 19; TEMP 96.5; O2SAT 96
--- NOTE | 2016-10-06 17:30 | NUR ---
Jack rounds: Dr. Cantu seen the pt with discharge order to with prescription.
[2016-10-06 18:10] VITALS: BP 124/76; PULSE 91; RESP 19; TEMP 96.5; O2SAT 96
--- NOTE | 2016-10-06 18:49 | NUR ---
D/C Patient Patient given medication reconciliation form and D/C instructions. Exit Care provided. Patient verbalized understanding. MD discussed with patient the results and treatment provided. Ambulatory with steady gait for discharge to home. Patient in stable condition, ID band removed. IV catheter removed, intact and dressing applied, no active bleeding. Rx given. Patient educated on pain management. All belongings sent with patient.
--- NOTE | 2016-10-08 10:28 | NUR ---
Discharge Follow Up Phone Call [facility] phoned patient, , and left a voicemail message on 10/07/16. SHEET METAL INSULATOR phoned and spoke with patient's , Elba, today. Elba stated patient is weak but getting better every day. They filled his prescriptions and he is taking his medication as directed. No follow up appointments have been made, but Elba stated she would call today. SHEET METAL INSULATOR offered to assist, but she preferred to make the calls herself. Elba asked patient if he had any questions or concerns. Patient stated he did not. No further follow up calls needed.
[2016-10-08 16:15] LABS: ASPERGILLUS FLAVUS Negative (Neg:<1:1); ASPERGILLUS FUMIGATUS Negative (Neg:<1:1)
--- NOTE | 2016-10-11 15:53 | NUR ---
Discharge Follow Up Phone Call: Per request of Bag Sealer, Piper, ADMISSIONS OFFICER called and returned a call from pt's . ADMISSIONS OFFICER called and spoke with pt ([phone]). Pt states that he was not able to get a follow up appointment with PCP, Dr. Cantu, until November. Pt requested for ADMISSIONS OFFICER to assist with scheduling pt's PCP follow up appointment. ADMISSIONS OFFICER called Dr. Cantu's office ([phone]) and spoke with Nurse, Agustina. Agustina confirmed that pt has an appointment scheduled in November. ADMISSIONS OFFICER requested that pt be seen sooner. Agustina attempted to schedule pt's appointment sooner, but there were not any appointments available prior to November. Agustina confirmed pt's contact information and states that if there is a cancellation, she will contact pt and move pt's appointment up sooner. ADMISSIONS OFFICER called pt and provided update. Pt did not express any other needs or concerns and denied the need for additional follow up at this time. ADMISSIONS OFFICER updated Bag Sealer.
== END 2016-10-06 18:49 | disposition home or self-care (01) | DRG 177 ==
LOC: SED 03:08 → SMU 06:22
PROVIDERS: ADMIT Internal Medicine; ATTEND Internal Medicine
DX: J15.6 Pneumonia due to other Gram-negative bacteria (principal); J96.90 Respiratory failure, unspecified, unspecified whether with hypoxia or hypercapnia; B37.0 Candidal stomatitis; J82 Pulmonary eosinophilia, not elsewhere classified; D64.9 Anemia, unspecified; N18.3 Chronic kidney disease, stage 3 (moderate); E03.9 Hypothyroidism, unspecified; T38.0X5A Adverse effect of glucocorticoids and synthetic analogues, initial encounter; E11.22 Type 2 diabetes mellitus with diabetic chronic kidney disease; E11.65 Type 2 diabetes mellitus with hyperglycemia; E78.5 Hyperlipidemia, unspecified; K21.9 Gastro-esophageal reflux disease without esophagitis; D47.3 Essential (hemorrhagic) thrombocythemia; D72.829 Elevated white blood cell count, unspecified; Z90.49 Acquired absence of other specified parts of digestive tract
CPT/HCPCS: 36415; 36600; 71010; 71020-TC; 71250-TC; 80048; 80053; 81000-TC; 82550-TC; 82785; 82803-TC; 83605; 83735-TC; 84100-TC; 85025; 85610-TC; 85730-TC; 86140; 86256; 86480; 86606; 86635; 87040-TC; 87101; 87116; 87205-TC; 87305; 93005; 96365; 99291; 99292; J0456; J0692; J0696; J1030; J1450; J1650; J1956; J2543; J2930; J3490; J7030; J7050; J7060; J7512; Q0144; Q0163